=== PATIENT | female | born 1985 | race Caucasian/White ===

== ENCOUNTER 2021-07-18 07:20 | Outpatient (CLI) | payer OTHER ==
[2021-07-18] MEDS: LACTATED RINGERS 1,000 ML IV SCH ×3 (07:20→08:05)
[2021-07-18 07:44] LABS: Basophils % (A) 0 %; Eosinophils # (A) 0.2 k/uL (0-0.7); Eosinophils % (A) 2 %; HCT 32.8 % (34.0-46.0); HGB 10.7 gm/dL (11.4-16.0); Lymphocytes # (A) 2.5 k/uL (1.0-4.8); Lymphocytes % (A) 27 %; MCH 32.2 pg (25.0-35.0); MCHC 32.5 g/dL (31.0-37.0); MCV 99.2 fL (80.0-100.0); Mean Platelet Volume 7.8; Monocytes # (A) 0.4 k/uL (0-1.0); Monocytes % (A) 4 %; Neutrophils # (A) 6.1 k/uL (1.3-7.7); Neutrophils % (A) 66 %; Platelet Count 268 k/uL (150-450); RBC 3.31 m/uL (3.80-5.40); RDW 12.5 % (11.5-15.5); WBC 9.3 k/uL (3.8-10.6)
--- NOTE | 2021-07-18 08:09 | P.HPOB ---
History of Present Illness H&P Date: 07/18/21 Chief Complaint: 22-5/7 weeks, acute vaginal bleeding The patient is a 36-year-old 3 para 0202 admitted at 22-5/7 weeks by good dating parameters. She has had care at a practice in the [facility]. She presents to our triage area by EMS after being awoken in the middle of night with acute active of in roberto vaginal bleeding. She had a similar episode happened last week and was ultimately admitted to [facility] in [place] where ultrasound demonstrated the patient to have both placenta previa and some degree of placental accreta. As a result, she has been told that she will require hysterectomy for delivery and that delivery should be effected in a tertiary care center. On labor and delivery at this time, she has no active bleeding. She does feel some cramping and pressure but nothing further. She denies any causative actions for the bleeding and, as noted above, was simply awaken from sleep. heart tones at this time are present. Vital signs are stable at this time. Obstetrical history: 3 para 0202 with 2 previous 36 week sections, the first for arrest of dilation and descent, the second for repeat. The remainder of her history is as listed in history of present illness. As we do not have her record, I do not have any of her labs or other statistics. Gynecologic history: Unremarkable with no history of any infections to include STDs. Review of Systems Review of systems is confined to history of present illness. Medications and Allergies Home Medications Medication Instructions Recorded Confirmed Type Escitalopram Oxalate [Lexapro] 30 mg PO DAILY 07/18/21 07/18/21 History Allergies Allergy/AdvReac Type Severity Reaction Status Date / Time No Known Allergies Allergy Verified 07/18/21 07:22 Exam Intake and Output 07/17/21 07/18/21 07/18/21 22:59 06:59 14:59 Other: Weight 64.864 kg In general, this is a well-developed, well-nourished white female in no acute di stress though she is naturally anxious. Her heart has a regular rhythm and rate without murmur. Her lungs are clear to auscultation bilaterally in all gonzalez. Her abdomen is gravid and consistent with a 22 week , nondistended, soft, nontender, and without any palpable masses aside from uterine fundus. Her extremities are without any cyanosis, clubbing, or edema and are nontender to palpation. Pelvic examination is deferred given her known findings of previa and accreta. Results Result Diagrams: 07/18/21 07:25 Abnormal Lab Results - Last 24 Hours (Table) 07/18/21 Range/Units 07:25 RBC 3.31 L (3.80-5.40) m/uL Hgb 10.7 L (11.4-16.0) gm/dL Hct 32.8 L (34.0-46.0) % Assessment and Plan (1) 22 weeks gestation of Current Visit: Yes Status: Acute Code(s): Z3A.22 - 22 WEEKS GESTATION OF SNOMED Code(s): 10661249 (2) Vaginal bleeding Current Visit: Yes Status: Acute Code(s): N93.9 - ABNORMAL UTERINE AND VAGINAL BLEEDING, UNSPECIFIED SNOMED Code(s): 532727144 (3) Placenta previa Current Visit: Yes Status: Acute Code(s): O44.00 - COMPLETE PLACENTA PREVIA NOS OR WITHOUT HEMOR, UNSP TRI SNOMED Code(s): 00914390 (4) Placenta accreta Current Visit: Yes Status: Acute Code(s): O43.219 - PLACENTA ACCRETA, UNSPECIFIED TRIMESTER SNOMED Code(s): 93411201 Plan: The patient is, at this time, stable with no active ongoing bleeding. Her vital signs are stable with a normal pulse rate as well as normal blood pressure. Hemoglobin is approximately 10.6. The patient has requested to be transferred to [facility] for further ongoing care. I've discussed with her that the is currently previable and reiterated that, given her diagnoses, she likely will require hysterectomy at delivery. I've also discussed with her that delivery at this time would likely lead to loss of the infant. She understands all of the current scenarios and has again requested to be transferred to [facility]. I will attempt to make this happen in the next hour or so.
[2021-07-18 08:25] LABS: INR 0.9 (<1.2)
[2021-07-18 08:47] LABS: Partial Thromboplastin Time 21.1 sec (22.0-30.0)
[2021-07-18 09:30] VITALS: BP 101/62; PULSE 84; RESP 16; TEMP 96.4
== END 2021-07-18 09:05 ==
LOC: FBPOP 07:20
PROVIDERS: ATTEND Obstetrics & Gynecology
DX: O44.12 Complete placenta previa with hemorrhage, second trimester (principal); O43.212 Placenta accreta, second trimester; Z3A.22 22 weeks gestation of pregnancy
CPT/HCPCS: 85025; 85384; 85610; 85730; 86850; 86900; 86901; 96360; 96361; 99215